=== PATIENT | male | born 1970 ===

== ENCOUNTER 2018-07-17 18:00 | Emergency (ER) | payer BC ==
[2018-07-17] MEDS ORDERED: NITROGLYCERIN OINT 1 GM PKT TP ONE (18:10)
--- NOTE | 2018-07-17 18:13 | ER Report ---
History and Physical Time Seen By MD: 18:04 Hx. 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 They performed. Diagnostic study showing an elevated troponin and d-dimer. Patient was grossly hypoxic, requiring a mask to maintain saturations in the 90s. Patient's original presenting pulse ox was 52% at urgent care Patient with a very congested cough and fever. He describes primarily viral symptoms for the last week. Patient reports coughing up large amounts of sputum primarily clear. Patient describes dyspnea on exertion. He was unable to walk to his truck. Patient is from the [place] area. Patient notes feeling feverish a couple days ago with body aches and chills but those have resolved. Patient denies chest pain per se REVIEW OF SYSTEMS: Respiratory: As above Cardiovascular: No chest pain, no palpitations. Gastrointestinal: No vomiting, no abdominal pain. Musculoskeletal: No back pain. Allergies: Coded Allergies: No Known Drug Allergies (Unverified , 07/17/18) Hx Substance Use Disorder: No Constitutional Vital Sign - Last 24 Hours 07/17/18 07/17/18 07/17/18 07/17/18 18:00 18:01 18:04 18:15 Temp 100.2 Pulse ??? 106 103 Resp 28 23 B/P (MAP) 170/108 (128) 170/108 147/87 (107) Pulse Ox 89 88 O2 Delivery Nasal Cannula 07/17/18 07/17/18 07/17/18 07/17/18 18:18 18:30 18:35 18:45 Pulse 102 102 Resp 20 25 B/P (MAP) 134/83 (100) 143/92 (109) 141/90 (107) Pulse Ox 91 92 07/17/18 07/17/18 07/17/18 07/17/18 19:00 19:05 19:30 19:35 Pulse ??? 99 Resp 27 B/P (MAP) ???/??? (1665) 140/92 (108) Pulse Ox 90 Physical Exam Hypertensive, low-grade fever 100.2, pulse ox in the upper 90s simple mask at 6 L to maintain saturations in the high 90s, patient was unable to tolerate nasal cannula with 6 L General Appearance: The patient is alert, has no immediate need for airway protection and no current signs of toxicity. Slightly pale appearing, skin warm and dry HEENT: Pupils equal and round no injection. TMs normal, oropharynx without redness or exudate Respiratory: Chest is non tender, bibasilar rales with few rhonchi and expiratory wheezing Cardiac: regular rate and rhythm, distant heart sounds. No appreciable murmur Gastrointestinal: Abdomen is soft and non tender, no masses, bowel sounds no rmal. Musculoskeletal: Neck: Neck is supple and non tender. No JVD, no lymphadenopathy Extremities have full range of motion and are non tender. No edema, no calf tenderness Skin: No rashes or lesions. DIFFERENTIAL DIAGNOSIS: After history and physical exam differential diagnosis was considered for shortness of breath including but not limited to pulmonary infectious process, COPD, asthma, pulmonary embolus and congestive heart failure. Medical Decision Making Data Points Laboratory Hematology Test 07/17/18 18:14 07/17/18 18:19 Lactate 1.6 mmol/L (0.7-2.1) B-Type Natriuretic Peptide 48 pg/ml (0-100) Influenza Virus Type A (PCR) Negative (NEGATIVE) Influenza Virus Type B (PCR) Negative (NEGATIVE) Chemistry Test 07/17/18 18:14 07/17/18 18:19 Lactate 1.6 mmol/L (0.7-2.1) B-Type Natriuretic Peptide 48 pg/ml (0-100) Influenza Virus Type A (PCR) Negative (NEGATIVE) Influenza Virus Type B (PCR) Negative (NEGATIVE) EKG/Imaging EKG Interpretation 12 lead EKG: EKG from urgent care reviewed Rhythm: normal sinus rhythm [place]: normal QRS: normal ST segments: normal, no evidence of ischemia or dysrhythmia 12 lead EK Rhythm: Sinus tachycardia, rate 102 [place]: normal QRS: normal ST segments: normal, no evidence of ischemia or dysrhythmia Imaging Results: CT scan of the CTA pulmonary angiogram was obtained. The results of the study are CT angiogram chest with contrast Indication: Hypoxia. Elevated d-dimer. Comparison: None available. Technique: Axial CT images are obtained through the chest after administration of 85 mL Isovue 370 IV contrast. Reformatted coronal and sagittal images were reviewed as well as coronal MIP images. One of the following dose optimization techniques was utilized in the performance of this exam: automated exposure control; adjustment of the mA and/or kV according to the patient's size; or use of an iterative reconstruction technique. Specific details can be referenced in the facility's radiology CT exam operational policy. FINDINGS: No evidence of filling defect within the pulmonary vasculature to suggest pulmonary embolus. Heart is normal size without pericardial effusion. Mild coronary artery calcifications. Aorta shows no aneurysm or dissection. The AP window mediastinum does show a prominent lymph node measuring 2.2 x 1.3 cm. This is nonspecific at this time. There are couple smaller lymph nodes seen mediastinum and hilar regions. The mediastinum and hilar regions show no other enlarged lymph nodes or abnormal density. Lungs show no consolidation, pleural effusion or pneumothorax. Faint interstitial prominence is seen in the left lung. The inferior left upper lobe does show a ill-defined noncalcified nodule measuring 1.2 x 1.1 cm. Image #59 series 5. No other discrete nodules. No focal interstitial opacities. Airways are clear. The bony structures show no acute fractures or aggressive bony lesions. Mild degenerative change seen spine. Chest wall shows no enlarged axillary lymph nodes or masses. Limited views of the upper abdomen are unremarkable. IMPRESSION: 1. No evidence of pulmonary embolus. 2. No focal infiltrate. 3. 1.2 cm ill-defined nodule in the inferior left upper lobe. There are some mildly prominent lymph nodes seen in the mediastinum and hilar regions. Faint interstitial changes seen in the left lung. These findings could be secondary to pneumonitis or could also be secondary to neoplastic process. Follow-up nodule per Fleischner guidelines described below. The study was read by the radiologist. I viewed the images myself on the PACS system. ED Course/Re-evaluation Clinical Indication for ER IV: Hydration, IV Access ED Course Patient was admitted to an examination room. H&P was done. The differential diagnoses was considered. Patient received 81 mg aspirin at urgent care. EMS completed a full spectrum of baby aspirin to a total of 4. On arrival, patient has stable vital signs blood pressure 170/100. Requiring nonrebreather mask to maintain saturations in the high 90s. He was tried on a nasal cannula at 6 L unable to maintain saturations above 90% was placed on a simple mask at 8 L to maintain his saturations. Patient has a 19,000 white count with a left shift noted from urgent care. His elevated troponin and d-dimer. Patient is treated with Solu-Medrol. Blood cultures were completed. A lactate was drawn which was normal at 1.6. BNP was performed which was normal at 48. Rapid influenza was performed which was negative. Patient's chest x-ray was reviewed which shows hazy bilateral lower lobe infiltrates, no effusions. A CTA pulmonary angiogram was performed, no evidence of pulmonary embolism. No adelaida infiltrates were n oted as an incidental pulmonary nodule 1.2 cm noted. Patient was treated with Solu-Medrol 125 mg and Rocephin 2 g IV. She'll be transferred over to [facility] for further treatment. He will need cardiology consultation for his elevated troponin. His EKG is normal sinus rhythm without evidence of ischemia. 07/17/2018 8:15:38 pm case discussed with Dr. Robertson hospitalist at [facility] who accepts the patient for transfer to his facility. Decision to Disposition Date: Jul 17, 2018 Decision to Disposition Time: 18:19 Depart Departure Latest Vital Signs Vital Signs Date Time Temp Pulse Resp B/P (MAP) Pulse Ox O2 Delivery O2 Flow Rate FiO2 07/17/18 19:35 99 27 90 07/17/18 19:30 140/92 (108) 07/17/18 18:04 100.2 Nasal Cannula Impression: Primary Impression: Hypoxia Additional Impressions: Leukocytosis Elevated d-dimer Elevated troponin Incidental pulmonary nodule, greater than or equal to 8mm Condition: Improved Disposition: XFER TO [facility]UTE [facility] Problem Qualifiers Additional Impressions: Leukocytosis Leukocytosis type: unspecified Qualified Codes: D72.829 - Elevated white blood cell count, unspecified NATASHA CASANOVA DO Jul 17, 2018 18:13
[2018-07-17] MEDS ORDERED: NS(*) 0.9% 50 ML BAG 50 ML ONE (18:26)
[2018-07-17] MEDS ORDERED: IOPAMIDOL 76% 50 ML INFUS BTL 100 ML ONE (18:26)
[2018-07-17] MEDS ORDERED: cefTRIAXone 2 GM VIAL IVP ONE (18:40)
--- NOTE | 2018-07-17 19:46 | RADIOLOGY IMAGING REPORT ---
FACILITY: [facility] [place] PATIENT NAME: Juan Jose Trinidad : 1970 MR: [id number] V: [id number] EXAM DATE: ORDERING PHYSICIAN: NATASHA CASANOVA TECHNOLOGIST: Location: [facility] [place] Patient: Juan Jose Trinidad : 1970 Visit/Account:[id number] Date of Sevice: 07/17/2018 CT angiogram chest with contrast Indication: Hypoxia. Elevated d-dimer. Comparison: None available. Technique: Axial CT images are obtained through the chest after administration of 85 mL Isovue 370 IV contrast. Reformatted coronal and sagittal images were reviewed as well as coronal MIP images. One of the following dose optimization techniques was utilized in the performance of this exam: auto mated exposure control; adjustment of the mA and/or kV according to the patient's size; or use of an iterative reconstruction technique. Specific details can be referenced in the facility's radiology C T exam operational policy. FINDINGS: No evidence of filling defect within the pulmonary vasculature to suggest pulmonary embolus. Heart is normal size without pericardial effusion. Mild coronary artery calcifications. Aorta shows n o aneurysm or dissection. The AP window mediastinum does show a prominent lymph node measuring 2.2 x 1.3 cm. This is nonspecific at this time. There are couple smaller lymph nodes seen mediastinum and h ilar regions. The mediastinum and hilar regions show no other enlarged lymph nodes or abnormal densit y. Lungs show no consolidation, pleural effusion or pneumothorax. Faint interstitial prominence is seen in the left lung. The inferior left upper lobe does show a ill-defined noncalcified nodule measuring 1.2 x 1.1 cm. Image #59 series 5. No other discrete nodules. No focal interstitial opacities. Airways are clear. The bony structures show no acute fractures or aggressive bony lesions. Mild degenerative change seen spine. Chest wall shows no enlarged axillary lymph nodes or masses. Limited views of the upper abdomen are unremarkable. IMPRESSION: 1. No evidence of pulmonary embolus. 2. No focal infiltrate. 3. 1.2 cm ill-defined nodule in the inferior left upper lobe. There are some mildly prominent lymph n odes seen in the mediastinum and hilar regions. Faint interstitial changes seen in the left lung. The se findings could be secondary to pneumonitis or could also be secondary to neoplastic process. Follo w-up nodule per Fleischner guidelines described below. FLEISCHNER SOCIETY FOLLOW-UP GUIDELINES FOR NEWLY DETECTED INCIDENTAL NODULES IN PERSONS 35 YEARS OF AGE OR OLDER. *These recommendations do NOT apply to lung cancer screening, patients with immunosuppression or akbar ents with a known primary malignancy. SOLITARY SOLID NODULE If nodule size is < 6 mm: * Low risk patient ? No routine follow-up. * High risk patient ? Optional CT at 12 months. If nodule size is 6-8 mm: * Low risk patient ? CT at 6-12 months, then consider CT at 18-24 months if no change. * High risk patient ? CT at 6-12 months, then CT at 18-24 months if no change. If nodule size is > 8 mm: * Low risk patient ? Consider CT at 3, 9 and 24 months (if no change), PET/CT, tissue sampling or a combination thereof. * High risk patient ? Consider CT at 3, 9 and 24 months (if no change), PET/CT, tissue sampling, or a combination thereof. LOW RISK PATIENT: Minimal or absent history of tobacco use and of other known risk factors. HIGH RISK PATIENT: Tobacco use, family history of lung cancer, upper pulmonary lobe location of nodul e, presence of emphysema, pulmonary fibrosis, older age. Tito H, Jb DP, Angelina ADAMS, et al. Guidelines for Management of Incidental Pulmonary Nodules Dete cted on CT Images: From the Fleischner Society 2017. Radiology. [facility] Report Dictated By: Ivan Dowell at 07/17/2018 7:31 PM Report E-Signed By: Ivan Dowell at 07/17/2018 7:43 PM WSN:[id number]
[2018-07-17] MEDS ORDERED: methylPREDNIS SUCC 125 MG/2ML IVP ONE (20:20)
[2018-07-17] MEDS ORDERED: ALBUTEROL/IPRATROPIUM 3 ML NEB NEB ONE (20:35)
[2018-07-17 20:45] VITALS: BP 152/104
--- NOTE | 2018-07-18 10:02 | EKG ---
FACILITY: [facility] [place] PATIENT NAME: ALFREDITO FLOWERS : [id number] MR: [id number] V: [id number] EXAM DATE: ORDERING PHYSICIAN: NATASHA CASANOVA TECHNOLOGIST: ALICIA Test Reason : ELEVATED TROP Blood Pressure : / mmHG Vent. Rate : 102 BPM Atrial Rate : 102 BPM P-R Int : 164 ms QRS Dur : 078 ms QT Int : 332 ms P-R-T Axes : 075 074 044 degrees QTc Int : 432 ms Sinus tachycardia Otherwise normal ECG No previous ECGs available Confirmed by ROBERT HOLLEY ([id number]) on 07/18/2018 10:24:51 AM Referred By: JOCELYNE Confirmed By:ROBERT HOLLEY
== END 2018-07-17 21:25 | disposition short-term general hospital (02) ==
LOC: ER 18:15
DX: R09.02 Hypoxemia (principal); D72.829 Elevated white blood cell count, unspecified; R79.89 Other specified abnormal findings of blood chemistry; R91.1 Solitary pulmonary nodule
CPT/HCPCS: 36415; 71275; 83605; 83880; 87040; 87502; 93005; 94640; 96374; 96375; 99285; J0696; J2930; J7050; J7620; Q9967

== ENCOUNTER → 2018-07-17 | Outpatient (REF) | payer BC ==
[2018-07-17 17:07] LABS: PLATELET COUNT, AUTOMATED 269 K/uL (150-450)
== END ==
PROVIDERS: ATTEND Nurse Practitioner Family
DX: R09.02 Hypoxemia (principal)
CPT/HCPCS: 82040; 82247; 82310; 82374; 82435; 82565; 82947; 84075; 84132; 84155; 84295; 84450; 84460; 84484; 84520; 85025; 85379

== ENCOUNTER → 2018-07-17 | Outpatient (CLI) | payer BC | LOC: AMB 20:58 | PROVIDERS: ATTEND Nurse Practitioner | DX: I21.4 Non-ST elevation (NSTEMI) myocardial infarction (principal); J44.1 Chronic obstructive pulmonary disease with (acute) exacerbation; J45.901 Unspecified asthma with (acute) exacerbation; Z72.0 Tobacco use | CPT/HCPCS: A0425; A0426 ==

== ENCOUNTER → 2018-07-17 | Outpatient (CLI) | payer BC | LOC: AMB 17:47 | PROVIDERS: ATTEND Nurse Practitioner | DX: R06.02 Shortness of breath (principal); R79.89 Other specified abnormal findings of blood chemistry; R61 Generalized hyperhidrosis | CPT/HCPCS: A0425; A0427 ==